=== PATIENT | female | born 1965 | race Asian ===

== ENCOUNTER 2022-09-07 07:54 | Day surgery (SDC) | payer BC ==
[2022-09-02 14:40] VITALS: BMI 21.9
[2022-09-07 10:22] VITALS: RESP 16; TEMP 97.3
[2022-09-07 10:40] VITALS: BP 94/64; PULSE 67
== END 2022-09-07 10:55 | disposition home or self-care (01) ==
LOC: FASU-ENDO 07:54
PROVIDERS: ATTEND Internal Medicine Gastroenterology
PROC: 0DB98ZX Excision of Duodenum, Via Natural or Artificial Opening Endoscopic, Diagnostic (ICD-10-PCS; 2022-09-07)
PROC: 0DB68ZX Excision of Stomach, Via Natural or Artificial Opening Endoscopic, Diagnostic (ICD-10-PCS; 2022-09-07)
PROC: 0DJD8ZZ Inspection of Lower Intestinal Tract, Via Natural or Artificial Opening Endoscopic (ICD-10-PCS; principal; 2022-09-07 09:28)
DX: Z12.11 Encounter for screening for malignant neoplasm of colon (principal); K29.50 Unspecified chronic gastritis without bleeding; K64.1 Second degree hemorrhoids; Z80.0 Family history of malignant neoplasm of digestive organs; R10.13 Epigastric pain
CPT/HCPCS: 88305-TC; 88342-TC